=== PATIENT | female | born 1995 | race Caucasian/White ===

== ENCOUNTER 2017-06-07 11:40 | Emergency (ER) | payer BC ==
[2017-06-07 13:03] VITALS: BP 112/73
--- NOTE | 2017-06-07 13:19 | UC ---
Ear Complaint HPI - HPI Summary HPI Summary: 22 yo female with 2 day hx of left otalgia (04/27) and decreased hearing URI symptoms xx days - History of Current Complaint Chief Complaint: UCRespiratory Stated Complaint: EAR/SINUSES Time Seen by Provider: 06/07/17 13:05 Hx Obtained From: Patient Hx Last Menstrual Period: 05/24/17 Onset/Duration: Gradual Onset, Lasting Days Severity Initially: Mild Severity Currently: Mild Pain Intensity: 3 Pain Scale Used: 0-10 Numeric Associated Signs/Symptoms: Positive: Hearing Loss, URI Symptoms Related History: Prior ENT Surgery, T & A - Allergies/Home Medications Allergies/Adverse Reactions: Allergies Allergy/AdvReac Type Severity Reaction Status Date / Time No Known Allergies Allergy Verified 06/07/17 12:58 Home Medications: Home Medications Ibuprofen TAB* [Advil TAB*] 400 mg PO Q6H PRN 06/07/17 [History Confirmed ] PMH/Surg Hx/FS Hx/Imm Hx Previously Healthy: Yes - Surgical History Surgical History: Yes Surgery Procedure, Year, and Place: tonsilectomy - Family History Known Family History: Positive: Hypertension - Social History Alcohol Use: Occasionally Substance Use Type: None Smoking Status (MU): Never Smoked Tobacco Review of Systems Constitutional: Negative Skin: Negative Eyes: Negative ENT: Ear Ache, Nasal Discharge, Sinus Congestion Respiratory: Negative Cardiovascular: Negative Gastrointestinal: Negative Genitourinary: Negative Motor: Negative Neurovascular: Negative Musculoskeletal: Negative Neurological: Negative Psychological: Negative Is Patient Immunocompromised?: No All Other Systems Reviewed And Are Negative: Yes Physical Exam Triage Information Reviewed: Yes Appearance: Well-Appearing, No Pain Distress, Well-Nourished Vital Signs: Initial Vital Signs Temp 98.4 F 06/07/17 12:59 Pulse 75 06/07/17 12:59 Resp 20 06/07/17 12:59 BP 112/73 06/07/17 12:59 Pulse Ox 100 06/07/17 12:59 Vital Signs Reviewed: Yes Eyes: Positive: Conjunctiva Clear ENT: Positive: Nasal congestion, TM bulging - left, TM red - left slightly. Negative: Nasal drainage Neck: Positive: Supple, Nontender, No Lymphadenopathy Respiratory: Positive: Lungs clear, Normal breath sounds, No respiratory distress, No accessory muscle use Cardiovascular: Positive: RRR Musculoskeletal: Positive: ROM Intact, No Edema Neurological: Positive: Alert Psychological Exam: Normal Skin Exam: Normal Ear Complaint Course/Dx - Differential Dx/Diagnosis Provider Diagnoses: left serous otitis media Discharge - Sign-Out/Discharge Documenting (check all that apply): Discharge - Discharge Plan Condition: Stable Disposition: HOME Prescriptions: Amoxicillin PO (*) [Amoxicillin 875 MG (*)] 875 mg PO BID #14 tab Fluticasone NASAL SPRAY 50MCG* [Flonase NASAL SPRAY 50MCG*] 2 spray BOTH NARES DAILY #1 btl Patient Education Materials: Serous Otitis Media (ED) Referrals: Non Staff,Doctor [Primary Care Provider] - Additional Instructions: recheck in 2-3 weeks if hearing not back to normal - Billing Disposition and Condition Condition: STABLE Disposition: HOME
== END 2017-06-07 13:17 | disposition home or self-care (01) ==
LOC: UCCORT 11:40
DX: H65.92 Unspecified nonsuppurative otitis media, left ear (principal)
CPT/HCPCS: 99202; G0463

== ENCOUNTER 2017-11-16 13:33 | Emergency (ER) | payer BC ==
[2017-11-16 13:48] VITALS: BP 122/82
--- NOTE | 2017-11-16 14:02 | UC ---
Back Pain HPI - HPI Summary HPI Summary: C/O sharp lower left back pain over the last 2 weeks. Worst first thing in the morning with limiting movement. No fevers, sweats or chills. Some urinary frequency with some burning. - History of Current Complaint Chief Complaint: UCBackPain Stated Complaint: LOWER BACK PAIN Hx Obtained From: Patient Hx Last Menstrual Period: 11/15/17 ?: No Onset/Duration: Gradual Onset, Lasting Weeks - 2, Still Present Timing: Constant Severity Initially: Moderate Severity Currently: Moderate Pain Intensity: 5 Back Pain: Is Discrete @ - left lower back Character: Sharp Aggravating Factor(s): Movement, Bending Alleviating Factor(s): Rest Associated Signs And Symptoms: Positive: Flank Pain. Negative: Bladder Incontinence, Bowel Incontinence - Allergies/Home Medications Allergies/Adverse Reactions: Allergies Allergy/AdvReac Type Severity Reaction Status Date / Time No Known Allergies Allergy Verified 11/16/17 13:44 PMH/Surg Hx/FS Hx/Imm Hx Previously Healthy: Yes - Surgical History Surgical History: Yes Surgery Procedure, Year, and Place: Tonsillectomy, 2003, [place] - Family History Known Family History: Positive: Hypertension, Diabetes - Social History Occupation: Student Lives: Dormitory/Roommates Alcohol Use: Occasionally Substance Use Type: None Smoking Status (MU): Never Smoked Tobacco Review of Systems Genitourinary: Dysuria, Frequency Musculoskeletal: Arthralgia - left lower back. Is Patient Immunocompromised?: No All Other Systems Reviewed And Are Negative: Yes Physical Exam Triage Information Reviewed: Yes Appearance: Well-Appearing, Well-Nourished, Pain Distress - mild Vital Signs: Initial Vital Signs Temp 99 F 11/16/17 13:42 Pulse 84 11/16/17 13:42 Resp 16 11/16/17 13:42 BP 122/82 11/16/17 13:42 Pulse Ox 100 11/16/17 13:42 Vital Signs Reviewed: Yes Eyes: Positive: Conjunctiva Clear Neck exam: Normal Respiratory Exam: Normal Cardiovascular Exam: Normal Abdomen Description: Positive: Nontender, No Organomegaly, Soft. Negative: CVA Tenderness (R), CVA Tenderness (L) Musculoskeletal: Positive: ROM Limited @ - lower thoracic lumbar spine, Other: - Tenderness in the lateral lumbar Neurological Exam: Normal - Sensation and DTR's normal. Psychological Exam: Normal Skin Exam: Normal Back Pain Course/Dx - Differential Dx/Diagnosis Differential Diagnosis/HQI/PQRI: Herniated Disc, Strain, Sprain Provider Diagnoses: Lumbar strain Discharge - Sign-Out/Discharge Documenting (check all that apply): Patient Departure All imaging exams completed and their final reports reviewed: No Studies - Discharge Plan Condition: Stable Disposition: HOME Prescriptions: Cyclobenzaprine TAB* [Flexeril 10 MG TAB*] 10 mg PO TID PRN #10 tab PRN Reason: Pain - Back Ibuprofen TAB* [Motrin TAB* 600 MG] 600 mg PO Q6H PRN #100 tab PRN Reason: Pain Patient Education Materials: Low Back Strain (ED), Ibuprofen (By mouth), Cyclobenzaprine (By mouth) Referrals: Non Staff,Doctor [Primary Care Provider] - Additional Instructions: Stay well hydrated. Work on posture. Vitamin D3 5000iu 3 capsules all at once once a week. Magnesium 400 or 500mg once or twice a day until the sharp pain resolves. Yoga and strength training can be helpful to prevent this in the future. - Billing Disposition and Condition Condition: STABLE Disposition: Home
== END 2017-11-16 14:19 | disposition home or self-care (01) ==
LOC: UCCORT 13:33
DX: S39.012A Strain of muscle, fascia and tendon of lower back, initial encounter (principal); X58.XXXA Exposure to other specified factors, initial encounter; Y92.9 Unspecified place or not applicable
CPT/HCPCS: 81003; 84702; 99212; G0463